=== PATIENT | female | born 1995 | race Caucasian/White ===

== ENCOUNTER 2022-02-08 01:43 | Emergency (ER) | payer OTHER ==
[~2022-02-08] VITALS: Ht 154.9 cm; Wt 84.0 kg
[2022-02-08] MEDS ORDERED: LORAZEPAM 1MG TABLET PO ONE (02:30)
[2022-02-08 02:50] VITALS: BP 126/69
== END 2022-02-08 02:52 | disposition home or self-care (01) ==
LOC: ER 01:49
DX: F41.9 Anxiety disorder, unspecified (principal); Z98.890 Other specified postprocedural states
CPT/HCPCS: 93005; 99283